=== PATIENT | male | born 1965 ===

== ENCOUNTER 2017-09-18 19:47 | Emergency (ER) | payer BC ==
[~2017-09-18] VITALS: Ht 188 cm; Wt 113.8 kg
[~2017-09-18 19:47] MED LIST: CARV3.125 PO; CARV6.25 PO; CYCL10 PO; FURO20 PO; HYDACE7.5L PO; LISI10 PO; LORA.5 PO; LORA1 PO; PENVK500 PO; PROC10 PO; PROM12.5S PR; PROM25S PR; RXONDA4ODT MM; SILSUL1TC TOP; TADA10TA PO; [UNRECOGNIZED DRUG - OTHER]
[2017-09-18 20:21] LABS: BASOPHILS ABSOLUTE AUTO 0.09 K/mm3 (0.00-0.23); BASOPHILS PERCENT AUTO 1 % (0-2); EOSINOPHILS ABSOLUTE AUTO 0.25 K/mm3 (0.00-0.68); EOSINOPHILS PERCENT AUTO 3 % (0-6); Hematocrit 47.8 % (37.0-53.0); Hemoglobin 16.1 g/dL (13.5-17.5); IMMATURE GRAN ABSOLUTE AUTO 0.01 K/mm3 (0.00-0.10); IMMATURE GRAN PERCENT AUTO 0 % (0-1); LYMPHOCYTES ABSOLUTE AUTO 1.61 K/mm3 (0.84-5.20); LYMPHOCYTES PERCENT AUTO 18 % (21-46); MONOCYTES ABSOLUTE AUTO 0.91 K/mm3 (0.16-1.47); MONOCYTES PERCENT AUTO 10 % (4-13); Mean Corpuscular HGB 30.2 pg (26.0-34.0); Mean Corpuscular HGB Conc 33.7 g/dL (31.5-36.5); Mean Corpuscular Volume 90 fL (80-100); Mean Platelet Volume 10.7 fL (9.1-12.4); NEUTROPHILS ABSOLUTE AUTO 5.91 K/mm3 (1.96-9.15); NEUTROPHILS PERCENT AUTO 67 % (41-73); Platelet Count 247 K/mm3 (150-400); RDW Coefficient Variation 12.5 % (11.7-14.2); RDW Standard Deviation 41.5 fL (35.1-46.3); Red Blood Cell Count 5.33 M/mm3 (4.30-5.90); White Blood Cell Count 8.78 K/mm3 (4.00-11.30)
[2017-09-18 20:43] LABS: Alanine Aminotransfer (ALT/SGP 42 U/L (12-78); Albumin/Globulin Ratio 1.2 (0.8-1.8); Alk Phos 94 U/L (50-136); Anion Gap 8 mmol/L (6-16); Aspartate Aminotrans (AST/SGOT 33 U/L (12-37); Bilirubin, Total 0.7 mg/dL (0.1-1.0); Blood Urea Nitrogen 16 mg/dL (8-24); CO2, Blood 28 mmol/L (21-32); Calcium, Blood 8.5 mg/dL (8.5-10.1); Chloride, Blood 105 mmol/L (98-108); Creatinine, Blood 1.07 mg/dL (0.60-1.20); Globulin, Blood 3.4 g/dL (2.2-4.0); Glomerular Filtration Rate >60 (60-); Glucose, Blood 110 mg/dL (70-99); Potassium, Blood 3.6 mmol/L (3.5-5.5); Sodium, Blood 141 mmol/L (136-145); Total Protein, Blood 7.4 g/dL (6.4-8.2); Troponin I <0.015 ng/mL (0.000-0.040)
[2017-10-24] MEDS ORDERED: LORA.5 PO (16:28)
[2017-10-24] MEDS ORDERED: Citalopram HBr10 MG PO (16:29)
[2017-10-24] MEDS ORDERED: ESZO1 PO (16:29)
[2017-10-24] MEDS ORDERED: CARV3.125 PO (16:29)
[2017-10-27] MEDS ORDERED: COLCHICINE0.6 MG PO (13:40)
[2017-10-27] MEDS ORDERED: Cyclobenzaprine5 MG PO (13:41)
[2017-10-27] MEDS ORDERED: IBUP600 PO (13:42)
[2017-10-27] MEDS ORDERED: PANT40 PO (13:43)
== END 2017-09-18 22:01 | disposition home or self-care (01) ==
LOC: ER 19:47
PROVIDERS: Emergency Medicine
DX: R07.9 Chest pain, unspecified (principal); Z85.818 Personal history of malignant neoplasm of other sites of lip, oral cavity, and pharynx
CPT/HCPCS: 36415; 71046; 80053; 84484; 85025; 93005; 93010; 96374; 96375; 99284; J1885; J3010

== ENCOUNTER 2017-09-21 09:26 | Inpatient (IN) | payer BC ==
[~2017-09-21] VITALS: Ht 188 cm; Wt 117.1 kg
[2017-09-21 09:47] LABS: BASOPHILS PERCENT AUTO 1 % (0-2); EOSINOPHILS ABSOLUTE AUTO 0.46 K/mm3 (0.00-0.68); EOSINOPHILS PERCENT AUTO 5 % (0-6); Hematocrit 50.7 % (37.0-53.0); IMMATURE GRAN ABSOLUTE AUTO 0.01 K/mm3 (0.00-0.10); IMMATURE GRAN PERCENT AUTO 0 % (0-1); LYMPHOCYTES ABSOLUTE AUTO 1.12 K/mm3 (0.84-5.20); LYMPHOCYTES PERCENT AUTO 12 % (21-46); MONOCYTES ABSOLUTE AUTO 0.87 K/mm3 (0.16-1.47); MONOCYTES PERCENT AUTO 10 % (4-13); Mean Corpuscular HGB 29.8 pg (26.0-34.0); Mean Corpuscular HGB Conc 33.5 g/dL (31.5-36.5); Mean Corpuscular Volume 89 fL (80-100); Mean Platelet Volume 10.8 fL (9.1-12.4); NEUTROPHILS PERCENT AUTO 72 % (41-73); Platelet Count 258 K/mm3 (150-400); RDW Coefficient Variation 12.5 % (11.7-14.2); RDW Standard Deviation 40.7 fL (35.1-46.3); Red Blood Cell Count 5.71 M/mm3 (4.30-5.90); White Blood Cell Count 9.16 K/mm3 (4.00-11.30)
[2017-09-21 10:11] LABS: Alanine Aminotransfer (ALT/SGP 33 U/L (12-78); Albumin, Blood 3.8 g/dL (3.4-5.0); Albumin/Globulin Ratio 1.1 (0.8-1.8); Alk Phos 77 U/L (50-136); Anion Gap 7 mmol/L (6-16); Aspartate Aminotrans (AST/SGOT 25 U/L (12-37); Bilirubin, Total 0.8 mg/dL (0.1-1.0); Blood Urea Nitrogen 14 mg/dL (8-24); Bun/Creatinine Ratio 14.2 (12.0-20.0); CO2, Blood 27 mmol/L (21-32); Calcium, Blood 8.5 mg/dL (8.5-10.1); Chloride, Blood 107 mmol/L (98-108); Creatinine, Blood 0.99 mg/dL (0.60-1.20); Globulin, Blood 3.6 g/dL (2.2-4.0); Glomerular Filtration Rate >60 (60-); Glucose, Blood 90 mg/dL (70-99); Potassium, Blood 3.9 mmol/L (3.5-5.5); Sodium, Blood 141 mmol/L (136-145); Total Protein, Blood 7.4 g/dL (6.4-8.2)
[2017-09-22 04:16] LABS: Hematocrit 44.8 % (37.0-53.0); Hemoglobin 15.1 g/dL (13.5-17.5); Mean Corpuscular HGB 30.1 pg (26.0-34.0); Mean Corpuscular HGB Conc 33.7 g/dL (31.5-36.5); Mean Corpuscular Volume 89 fL (80-100); Mean Platelet Volume 10.9 fL (9.1-12.4); Platelet Count 253 K/mm3 (150-400); RDW Coefficient Variation 12.5 % (11.7-14.2); RDW Standard Deviation 41.2 fL (35.1-46.3); Red Blood Cell Count 5.01 M/mm3 (4.30-5.90); White Blood Cell Count 7.71 K/mm3 (4.00-11.30)
[2017-09-22 04:34] LABS: Anion Gap 7 mmol/L (6-16); Blood Urea Nitrogen 18 mg/dL (8-24); Bun/Creatinine Ratio 16.7 (12.0-20.0); CHOL/HDL RATIO 3.3; CO2, Blood 26 mmol/L (21-32); Calcium, Blood 8.1 mg/dL (8.5-10.1); Chloride, Blood 107 mmol/L (98-108); Cholesterol 119 mg/dL (50-200); Creatinine, Blood 1.08 mg/dL (0.60-1.20); Glomerular Filtration Rate >60 (60-); Glucose, Blood 106 mg/dL (70-99); HDL Cholesterol 36 mg/dL (>39); LDL/HDL RATIO 1.7; Low Density Lipoprotein Chol 60 mg/dL (0-110); Sodium, Blood 140 mmol/L (136-145); Triglycerides 115 mg/dL (30-160); Very Low Density Lipoprot Chol 23 mg/dL (6-32)
[2017-09-23] MEDS ORDERED: ASPI81CH PO (11:49)
[2017-10-24] MEDS ORDERED: LORA.5 PO (16:28)
[2017-10-24] MEDS ORDERED: Citalopram HBr10 MG PO (16:29)
[2017-10-24] MEDS ORDERED: CARV3.125 PO (16:29)
[2017-10-24] MEDS ORDERED: ESZO1 PO (16:29)
[2017-10-27] MEDS ORDERED: COLCHICINE0.6 MG PO (13:40)
[2017-10-27] MEDS ORDERED: Cyclobenzaprine5 MG PO (13:41)
[2017-10-27] MEDS ORDERED: IBUP600 PO (13:42)
[2017-10-27] MEDS ORDERED: PANT40 PO (13:43)
== END 2017-09-23 12:53 | disposition home or self-care (01) | DRG 287 ==
LOC: ER 09:26 → PCU 09:27
PROVIDERS: Emergency Medicine; Internal Medicine
PROC: B2111ZZ Fluoroscopy of Multiple Coronary Arteries using Low Osmolar Contrast (ICD-10-PCS; principal; 2017-09-22)
DX: I16.0 Hypertensive urgency (principal); G47.33 Obstructive sleep apnea (adult) (pediatric); I10 Essential (primary) hypertension; Z85.818 Personal history of malignant neoplasm of other sites of lip, oral cavity, and pharynx; Z92.3 Personal history of irradiation; Z92.21 Personal history of antineoplastic chemotherapy; Z87.891 Personal history of nicotine dependence; Z79.899 Other long term (current) drug therapy
CPT/HCPCS: 36415; 71046; 71275; 74220; 80048; 80053; 80061; 84484; 85025; 85027; 85379; 85730; 93005; 93010; 93306; 93454; 93880; 93970; 96365; 96366; 96372; 96374; 96375; 96376; 99152; 99285; C1769; C1894; C9113; G0378; J1170; J1644; J1885; J2250; J2405; J3010; J7030; J7040; Q9967

== ENCOUNTER 2024-03-21 23:42 | Emergency (ER) | payer SELFPAY ==
[~2024-03-21] VITALS: Ht 188 cm; Wt 117.0 kg
[~2024-03-21 23:42] MED LIST changes: +ASPI81CH PO; +COLCHICINE0.6 MG PO; +Citalopram HBr10 MG PO; +Cyclobenzaprine5 MG PO; +ESZO1 PO; +IBUP600 PO; +PANT40 PO
[2024-03-22 00:12] VITALS: BP 207/149
[2024-03-22] MEDS ORDERED: ALLEGRA ALLERG180 MG PO (00:14)
[2024-03-22] MEDS ORDERED: Flonase 0.05% N16 GM (00:14)
[2024-03-22] MEDS ORDERED: OZEMPIC0.25 MG/02 SC (00:15)
[2024-03-22] MEDS ORDERED: Diphth,Pertuss(Acell),Tet Vac 0.5 ML VIAL IM ONE (00:45)
== END 2024-03-22 01:05 | disposition home or self-care (01) ==
LOC: ER 23:42
DX: S81.812A Laceration without foreign body, left lower leg, initial encounter (principal); W20.8XXA Other cause of strike by thrown, projected or falling object, initial encounter; I25.10 Atherosclerotic heart disease of native coronary artery without angina pectoris; I25.2 Old myocardial infarction; I10 Essential (primary) hypertension; F41.9 Anxiety disorder, unspecified; G47.30 Sleep apnea, unspecified; Z23 Encounter for immunization; Z79.899 Other long term (current) drug therapy
CPT/HCPCS: 12001; 90471; 90715; 99282-25

== ENCOUNTER 2025-01-02 22:19 | Emergency (ER) | payer BC ==
[~2025-01-02] VITALS: Ht 188 cm; Wt 97.5 kg
[~2025-01-02 22:19] MED LIST changes: +ALLEGRA ALLERG180 MG PO; +Flonase 0.05% N16 GM; +OZEMPIC0.25 MG/02 SC
[2025-01-02] MEDS ORDERED: Ondansetron HCl 2 MG / ML 2ML Vial IV PRN (22:40)
[2025-01-02 23:10] LABS: BASOPHILS ABSOLUTE AUTO 0.06 K/mm3 (0.00-0.23); BASOPHILS PERCENT AUTO 1 % (0-2); EOSINOPHILS ABSOLUTE AUTO 0.28 K/mm3 (0.00-0.68); EOSINOPHILS PERCENT AUTO 3 % (0-6); Hemoglobin 16.4 g/dL (13.5-17.5); IMMATURE GRAN ABSOLUTE AUTO 0.02 K/mm3 (0.00-0.10); IMMATURE GRAN PERCENT AUTO 0 % (0-1); LYMPHOCYTES ABSOLUTE AUTO 1.87 K/mm3 (0.84-5.20); LYMPHOCYTES PERCENT AUTO 22 % (21-46); MONOCYTES ABSOLUTE AUTO 0.95 K/mm3 (0.16-1.47); MONOCYTES PERCENT AUTO 11 % (4-13); Mean Corpuscular HGB Conc 32.2 g/dL (31.5-36.5); Mean Corpuscular Volume 84 fL (80-100); NEUTROPHILS ABSOLUTE AUTO 5.39 K/mm3 (1.96-9.15); NEUTROPHILS PERCENT AUTO 63 % (41-73); Platelet Count 288 K/mm3 (150-400); RDW Coefficient Variation 17.8 % (11.7-14.2); RDW Standard Deviation 52.4 fL (35.1-46.3); Red Blood Cell Count 6.08 M/mm3 (4.30-5.90); White Blood Cell Count 8.57 K/mm3 (4.00-11.30)
[2025-01-02 23:30] LABS: Albumin, Blood 4.5 g/dL (3.4-5.0); Albumin/Globulin Ratio 1.3 (0.8-1.8); Bilirubin, Total 0.4 mg/dL (0.1-1.0); Bun/Creatinine Ratio 13.6 (12.0-20.0); Calcium, Blood 9.7 mg/dL (8.5-10.1); Creatinine, Blood 1.25 mg/dL (0.60-1.20); Globulin, Blood 3.5 g/dL (2.2-4.0); Potassium, Blood 4.3 mmol/L (3.5-5.5)
[2025-01-03] MEDS ORDERED: NS 1,000 ML IV SCH (00:55)
[2025-01-03] MEDS ORDERED: Metoclopramide HCl 5MG / ML 2ML Vial IV ONE (00:55)
[2025-01-03] MEDS ORDERED: Pantoprazole Sodium 40 MG Injection IV ONE (02:40)
[2025-01-03] MEDS ORDERED: Mag Hydrox/AL Hydrox/Simeth 30 ML UDC PO ONE (02:40)
[2025-01-03] MEDS ORDERED: PANT40 PO (02:46)
[2025-01-03 03:00] VITALS: BP 113/82
== END 2025-01-03 03:11 | disposition home or self-care (01) ==
LOC: ER 22:19
PROVIDERS: Emergency Medicine
DX: K21.9 Gastro-esophageal reflux disease without esophagitis (principal); E86.0 Dehydration; R06.6 Hiccough; I25.10 Atherosclerotic heart disease of native coronary artery without angina pectoris; I25.2 Old myocardial infarction; I10 Essential (primary) hypertension; G47.33 Obstructive sleep apnea (adult) (pediatric); Z85.89 Personal history of malignant neoplasm of other organs and systems; Z87.11 Personal history of peptic ulcer disease; Z79.85 Long-term (current) use of injectable non-insulin antidiabetic drugs; Z79.899 Other long term (current) drug therapy; Z59.89 Other problems related to housing and economic circumstances
CPT/HCPCS: 74174; 80053; 85025; 86850; 86900; 86901; 93005; 93010; 96361; 96374-59; 96375-59; 99284-25; A9270; J2405; J2470; J2765; J7030; Q9967